=== PATIENT | female | born 1995 | race African-American/Black ===

== ENCOUNTER 2016-07-20 16:00 | Emergency (ER) | payer SELFPAY ==
[~2016-07-20] VITALS: Ht 162.6 cm; Wt 82.6 kg
[~2016-07-20 16:00] MED LIST: IRON1CAP17 PO; NORE5TAB3 PO
[2016-07-20 17:10] VITALS: BP 146/79
[2016-07-20 17:12] LABS: BILIRUBIN,URINE NEGATIVE (NEG); GLUCOSE,URINE NEGATIVE (NEG); NITRITE,URINE NEGATIVE (NEG); PROTEIN,URINE NEGATIVE (NEG-TRACE); UROBILINOGEN,URINE 0.2 mg/dL (0.2 mg/dL)
--- NOTE | 2016-07-20 17:23 | PHYS DOC ---
Past Medical History Past Medical History: No Pertinent History Past Surgical History: No Surgical History Additional Information: nonsmoker Alcohol Use: None Drug Use: Marijuana Adult General Chief Complaint Chief Complaint: VAGINAL BLEEDING HPI HPI Patient is a 21 year old female who presents with heavy vaginal bleeding that started on 07/02/16. She states that the bleeding is heavier than her usual menstrual cycles and she has passed clots. She denies any pain or urinary symptoms. She was seen here for heavy vaginal bleeding in March of last year. She was severely anemic, but was discharged home with a prescription for norethindrone. She states that the medication helped stop her bleeding. She had regular menstrual cycles in April and May. She admits to feeling easily short of breath with light activity and light headed. She denies shortness of breath at rest or syncopal episodes. She does not have a PCP and has not follow up with a oral health therapist since her last visit here. Review of Systems Review of Systems Constitutional: Denies fever or chills. [] Eyes: Denies change in visual acuity, redness, or eye pain. [] HENT: Denies ear pain, nasal congestion or sore throat. [] Respiratory: Denies cough or shortness of breath. [] Cardiovascular: Denies chest pain, palpitations or edema. Reports dyspnea on light exertion. GI: Denies abdominal pain, nausea, vomiting, bloody stools or diarrhea. [] : Denies dysuria, hematuria or urinary frequency. Reports heavy vaginal bleeding. Musculoskeletal: Denies back pain or joint pain. [] Integument: Denies rash or skin lesions. [] Neurologic: Denies headache, focal weakness or sensory changes. Denies syncope. Reports feeling lightheaded. Endocrine: Denies polyuria or polydipsia. [] Psych: Denies anxiety or depression. [] All systems reviewed and negative unless otherwise stated in the HPI. Allergies Allergies Allergies Coded Allergies Type Severity Reaction Last Updated Verified No Known Drug Allergies 03/28/16 No Physical Exam Physical Exam Constitutional: Well developed, well nourished, no acute distress, non-toxic appearance. [] HENT: Normocephalic, atraumatic, oropharynx moist. [] Eyes: PERRLA, EOMI, conjunctiva normal, no discharge. [] Neck: Normal range of motion, no tenderness, supple, no stridor. [] Cardiovascular: Heart rate regular rhythm, no murmur. [] Lungs & Thorax: Bilateral breath sounds clear to auscultation without wheezes, rales, or rhonchi. [] Abdomen: Bowel sounds normal, soft, no tenderness, no masses, no pulsatile masses. [] Female : small engine technician present during exam. Normal external genitalia. There is mild bleeding from the cervical os. The cervical os is closed. There is no discharge or cervicitis. There is no CMT or adnexal tenderness. Skin: Warm, dry, no erythema, no rash. [] Back: No midline tenderness, no CVA tenderness. [] Extremities: No tenderness, ROM intact, no edema. Distal pulses equal bilaterally. [] Neurologic: Alert and oriented X 3, normal motor function, normal sensory function, no focal deficits noted. [] Psychologic: Affect normal, judgement normal, mood normal. [] Current Patient Data Vital Signs Vital Signs Date Time Temp Pulse Resp B/P Pulse Ox O2 Delivery O2 Flow Rate FiO2 07/20/16 17:10 99.1 112 18 146/79 97 Room Air 99.1 Lab Values Laboratory Tests Test 07/20/16 16:47 07/20/16 17:02 07/20/16 17:07 07/20/16 18:30 Urine Collection Type Void Urine Color Yellow Urine Clarity Clear Urine pH 6.0 Urine Specific Isabella 1.015 Urine Protein Negativemg/dL (NEG-TRACE) Urine Glucose (UA) Negativemg/dL (NEG) Urine Ketones (Stick) Negativemg/dL (NEG) Urine Blood Small (NEG) Urine Nitrite Negative (NEG) Urine Bilirubin Negative (NEG) Urine Urobilinogen Dipstick 0.2mg/dL (0.2 mg/dL) Urine Leukocyte Esterase Negative (NEG) Urine RBC 1-2/HPF (0-2) Urine WBC 0/HPF (0-4) Urine Squamous Epithelial Cells Occ/LPF Urine Bacteria 0/HPF (0-FEW) Chlamydia DNA Probe Negative (Negative) Neisseria gonorrhoeae DNA Probe Negative (Negative) POC Urine HCG, Qualitative Hcg negative (Negative) White Blood Count 10.2x10^3/uL (4.0-11.0) Red Blood Count 4.35x10^6/uL (3.50-5.40) Hemoglobin 7.8g/dL (12.0-15.5) L Hematocrit 24.3% (36.0-47.0) L Mean Corpuscular Volume 56fL (79-100) L Mean Corpuscular Hemoglobin 18pg (25-35) L Mean Corpuscular Hemoglobin Concent 32g/dL (31-37) Red Cell Distribution Width 23.6% (11.5-14.5) H Platelet Count 347x10^3/uL (140-400) Neutrophils (%) (Auto) 66% (31-73) Lymphocytes (%) (Auto) 28% (24-48) Monocytes (%) (Auto) 6% (0-9) Eosinophils (%) (Auto) 1% (0-3) Basophils (%) (Auto) 0% (0-3) Neutrophils # (Auto) 6.7x10^3uL (1.8-7.7) Lymphocytes # (Auto) 2.8x10^3/uL (1.0-4.8) Monocytes # (Auto) 0.6x10^3/uL (0.0-1.1) Eosinophils # (Auto) 0.0x10^3/uL (0.0-0.7) Basophils # (Auto) 0.0x10^3/uL (0.0-0.2) Platelet Estimate Adequate (ADEQUATE) Polychromasia Slight Hypochromasia Marked Anisocytosis Mod Microcytosis Marked Target Cells Many Sodium Level 144mmol/L (136-145) Potassium Level 3.6mmol/L (3.5-5.1) Chloride Level 104mmol/L (98-107) Carbon Dioxide Level 27mmol/L (21-32) Anion Gap 13 (6-14) Blood Urea Nitrogen 8mg/dL (7-20) Creatinine 0.8mg/dL (0.6-1.0) Estimated GFR (Cockcroft-Gault) 108.5 Glucose Level 91mg/dL (70-99) Calcium Level 9.3mg/dL (8.5-10.1) Laboratory Tests 07/20/16 18:30 Laboratory Tests 07/20/16 18:30 Microbiology 07/20/16 Wet Prep - Final, Complete WET PREP Final YEAST NONE SEEN TRICHOMONAS NONE SEEN CLUE CELLS NONE SEEN WBCS OCCASIONAL RBCS MANY EKG EKG [] Radiology/Procedures Radiology/Procedures REASON: heavy vaginal bleeding PROCEDURE: PELVIS W/TV Pelvis with transvaginal Indication: Vaginal bleeding. Transabdominal and transvaginal pelvic sonography was performed. The uterus measures 7.1 x 4.1 x 3.3 centimeters. The endometrium is 7 millimeters in thickness. No uterine mass is detected. The right ovary measures 3.7 x 3.0 x 1.7 centimeters and the left ovary measures 3.7 x 1.7 x 1.8 centimeters. There is blood flow to both ovaries. No adnexal mass is identified. There is a small amount of free fluid in the posterior cul-de-sac. Impression: Essentially unremarkable transabdominal and transvaginal pelvic ultrasound. Course & Med Decision Making Course & Med Decision Making Pertinent Labs and Imaging studies reviewed. (See chart for details) The patient presents with heavy vaginal bleeding for over 2 weeks. She has been seen here before for the same. On exam, she has some active bleeding but no clots and no tenderness of the abdomen or adnexa. Her hemoglobin is >7.0, which is improved from her last visit when it was 5.6. She has been taking iron supplements. She has not followed up with gynecology since her last visit. Ultrasound of the pelvis is unremarkable. Patient course was discussed with Dr. Williamson. He agrees with plan to discharge her home with a prescription for norethindrone and follow up with gynecology. I stressed the importance of follow up with gynecology again. She is discharged home in stable condition. Dragon Disclaimer Dragon Disclaimer This electronic medical record was generated, in whole or in part, using a voice recognition dictation system. Departure Departure Impression: Primary Impression: Menorrhagia Disposition: 01 HOME, SELF-CARE Condition: STABLE Referrals: ROGELIO ZAMORANO MD Patient Instructions: Menorrhagia, [id number] Additional Instructions: You were seen today for heavy menstrual bleeding. Your ultrasound does not show any abnormalities. Your blood counts have come up since the last visit. Please take the prescribed medication as directed. Please follow-up with the oral health therapist listed below as soon as possible. This is a problem best managed by a oral health therapist, not in the emergency department. Return to the emergency department if you have any new or concerning symptoms. Scripts Norethindrone Acetate (Aygestin)5 Mg Tablet2 Tab PO DAILY #10 TAB Prov:MADELIN,OLIMPIA K PA 07/20/16 Problem Qualifiers Primary Impression: Menorrhagia Menorrahagia type: with irregular cycle Qualified Code: N92.1 - Excessive and frequent menstruation with irregular cycle OLIMPIA YUSUF Jul 20, 2016 17:23
[2016-07-20 17:24] LABS: BACTERIA,URINE 0 /HPF (0-FEW); SQUAMOUS EPITHELIAL CELL,UR OCC /LPF; WBC,URINE 0 /HPF (0-4)
--- NOTE | 2016-07-20 17:43 | RAD ---
Pelvis with transvaginal Indication: Vaginal bleeding. Transabdominal and transvaginal pelvic sonography was performed. The uterus measures 7.1 x 4.1 x 3.3 centimeters. The endometrium is 7 millimeters in thickness. No uterine mass is detected. The right ovary measures 3.7 x 3.0 x 1.7 centimeters and the left ovary measures 3.7 x 1.7 x 1.8 centimeters. There is blood flow to both ovaries. No adnexal mass is identified. There is a small amount of free fluid in the posterior cul-de-sac. Impression: Essentially unremarkable transabdominal and transvaginal pelvic ultrasound. Electronically signed by: Alfa Ramos MD (Jul 20, 2016 17:42:21)
[2016-07-20 18:42] LABS: BASO % 0 % (0-3); EOS % 1 % (0-3); HEMATOCRIT 24.3 % (36.0-47.0); HEMOGLOBIN 7.8 g/dL (12.0-15.5); LYMPH # 2.8 x10^3/uL (1.0-4.8); LYMPH % 28 % (24-48); MEAN CORPUSCULAR HEMOGLOBIN 18 pg (25-35); MEAN CORPUSCULAR HGB CONC 32 g/dL (31-37); MEAN CORPUSCULAR VOLUME 56 fL (79-100); MONO % 6 % (0-9); NEUT % 66 % (31-73); PLATELET COUNT 347 x10^3/uL (140-400); RED BLOOD COUNT 4.35 x10^6/uL (3.50-5.40); RED CELL DISTRIBUTION WIDTH 23.6 % (11.5-14.5); WHITE BLOOD COUNT 10.2 x10^3/uL (4.0-11.0)
[2016-07-20 18:53] LABS: CALCIUM 9.3 mg/dL (8.5-10.1); CREATININE 0.8 mg/dL (0.6-1.0); GFR 108.5; POTASSIUM 3.6 mmol/L (3.5-5.1)
[2016-07-20 19:19] LABS: ANISOCYTOSIS MOD; HYPOCHROMIA MARKED; PLT ESTIMATE ADEQUATE (ADEQUATE); POLYCHROMASIA SLIGHT
[2016-07-20 19:20] LABS: MICROCYTOSIS MARKED; TARGET CELLS MANY
[2016-07-20] MEDS ORDERED: NORE5TAB3 PO (19:37)
== END 2016-07-20 19:45 | disposition home or self-care (01) ==
LOC: ER 16:00
DX: N92.1 Excessive and frequent menstruation with irregular cycle (principal); F12.10 Cannabis abuse, uncomplicated
CPT/HCPCS: 36415; 76830; 76856; 80048; 81001; 81025; 85007; 85027; 87491; 87591; 99285; Q0111

== ENCOUNTER 2017-01-18 17:54 | Emergency (ER) | payer SELFPAY ==
[~2017-01-18] VITALS: Ht 167.6 cm; Wt 117.5 kg
[2017-01-18 19:18] VITALS: BP 133/80
[2017-01-18] MEDS ORDERED: NORG1TAB6 PO (20:10)
--- NOTE | 2017-01-18 20:14 | PHYS DOC ---
Past Medical History Past Medical History: No Pertinent History Past Surgical History: No Surgical History Alcohol Use: None Drug Use: None Adult General Chief Complaint Chief Complaint: VAGINAL BLEEDING HPI HPI Patient is a 21 year old female who presents with functional uterine bleeding, states she's been having vaginal bleeding for 3 weeks, she came in today because she was passing clots. She denies any abdominal pain, no nausea or vomiting, no dizziness or weakness, no shortness of breath. Patient's been seen at ER 2 times before for this. She states she has not followed up with a operations research analyst, does not take any contraception. Review of Systems Review of Systems Constitutional: Denies fever or chills [] Eyes: Denies change in visual acuity, redness, or eye pain [] HENT: Denies nasal congestion or sore throat [] Respiratory: Denies cough or shortness of breath [] Cardiovascular: Denies Chest pain GI: Denies abdominal pain, nausea, vomiting, bloody stools or diarrhea [] : Denies dysuria or hematuria [] Musculoskeletal: Denies back pain or joint pain [] Integument: Denies rash or skin lesions [] Neurologic: Denies headache, focal weakness or sensory changes [] Allergies Allergies Allergies Coded Allergies Type Severity Reaction Last Updated Verified No Known Drug Allergies 03/28/16 No Physical Exam Physical Exam Constitutional: Well developed, well nourished, no acute distress, non-toxic appearance. [] HENT: Normocephalic, atraumatic, bilateral external ears normal, oropharynx moist, no oral exudates, nose normal. [] Eyes: PERRLA, EOMI, conjunctiva normal, no discharge. [] Neck: Normal range of motion, no tenderness, supple, no stridor. [] Cardiovascular:Heart rate regular regular rhythm, no murmur [] Lungs & Thorax: Bilateral breath sounds clear to auscultation [] Abdomen: soft, no tenderness, no masses, no pulsatile masses. [ Pelvic: Moderate vaginal bleeding, closed cervix, no CMT, no other discharge, no ovarian mass, no tenderness in the adnexa Skin: Warm, dry, no erythema, no rash. [] Back: No tenderness, no CVA tenderness. [] Extremities: No tenderness, no cyanosis, no clubbing, ROM intact, no edema. [] Neurologic: Alert and oriented X 3, normal motor function, normal sensory function, no focal deficits noted. [] Psychologic: Affect normal, judgement normal, mood normal. [] Current Patient Data Vital Signs Vital Signs Date Time Temp Pulse Resp B/P (MAP) Pulse Ox O2 Delivery O2 Flow Rate FiO2 01/18/17 19:18 98.7 99 20 133/80 (97) 99 Room Air 98.7 EKG EKG [] Radiology/Procedures Radiology/Procedures [] Course & Med Decision Making Course & Med Decision Making Pertinent Labs and Imaging studies reviewed. (See chart for details) Patient has dysfunctional uterine bleeding, she has no signs of symptomatic anemia. I spoke with Dr. Fish by phone, he commended starting control, patient was given Sprintec, recommended follow-up with operations research analyst and referred to Dr. Fish. Mono Disclaimer Mono Disclaimer This electronic medical record was generated, in whole or in part, using a voice recognition dictation system. Departure Departure Impression: Primary Impression: Menorrhagia Disposition: HOME, SELF-CARE Condition: STABLE Referrals: ROGELIO ZAMORANO MD Please take the contraception medication and continue to take until you follow- up with a operations research analyst. Patient Instructions: Menorrhagia, [id number] Scripts Norgestimate-Ethinyl Estradiol (SPRINTEC) 1 Each Tablet 1 TAB PO DAILY, #28 TAB 0 Refills Prov: LAN CABA MD 01/18/17 LAN CABA MD Jan 18, 2017 20:14
== END 2017-01-18 20:33 | disposition home or self-care (01) ==
LOC: ER 17:54
DX: N92.0 Excessive and frequent menstruation with regular cycle (principal)
CPT/HCPCS: 81025; 99283

== ENCOUNTER 2017-12-18 18:36 | Emergency (ER) | payer SELFPAY ==
[2017-12-18 19:37] LABS: BILIRUBIN,URINE NEGATIVE (NEG); CLARITY,URINE CLEAR; COLOR,URINE YELLOW; GLUCOSE,URINE NEGATIVE (NEG); NITRITE,URINE NEGATIVE (NEG); PH,URINE 7.5; PROTEIN,URINE NEGATIVE (NEG-TRACE)
[2017-12-18 19:41] LABS: NEG OBC UR NEG; POS OBC UR POS; U PREG PATIENT NEGATIVE (NEG)
[2017-12-18 19:46] LABS: AMORPHOUS SEDIMENT,UR PRESENT /HPF; BACTERIA,URINE FEW /HPF (0-FEW); RBC,URINE 0 /HPF (0-2); SQUAMOUS EPITHELIAL CELL,UR MOD /LPF
[2017-12-20 14:33] LABS: CHLAMYDIA PROBE Negative (Negative); GC PROBE Negative (Negative)
== END 2017-12-18 20:39 | disposition home or self-care (01) ==
LOC: ER 18:36
DX: N93.8 Other specified abnormal uterine and vaginal bleeding (principal); N92.6 Irregular menstruation, unspecified
CPT/HCPCS: 81001; 81025; 87491; 87591; 99284; Q0111